=== PATIENT | male | born 1970 | race Caucasian/White ===

== ENCOUNTER 2022-11-14 13:22 | Emergency (ER) | payer OTHER, SELFPAY ==
[2022-11-14 13:26] VITALS: BP 133/92; PULSE 88; RESP 15; TEMP 36.8; O2SAT 100
== END 2022-11-14 13:37 | disposition left against medical advice (07) ==
LOC: ANHED 13:35
DX: R55 Syncope and collapse (principal)
CPT/HCPCS: 99199

== ENCOUNTER 2023-09-20 15:58 | Emergency (ER) | payer SELFPAY ==
--- NOTE | ~2023-09-20 | XR_ITS ---
XR chest 2V Ordering provider: Maria Luisa Wilson History: 53 years Male with . chest pain . Comparison: None. FINDINGS: MEDIASTINUM: The cardiac silhouette is not enlarged. LUNGS: No infiltrates, effusions or pneumothorax. OTHER: No free air under the diaphragm. IMPRESSION: No acute cardiopulmonary pathology. Reviewed, dictated and finalized at location A.
--- NOTE | 2023-09-20 16:00 | ECG_ITS ---
Test Date: 2023-09-20 16:04:37 Measurements Intervals [place] Rate: 94 P: 49 WI: 143 QRS: 35 QRSD: 107 T: 51 QT: 344 QTc: 431 Interpretive Statements SINUS RHYTHM DELAYED PRECORDIAL R/S TRANSITION BORDERLINE ECG No previous ECG available for comparison Electronically Signed On 09-20-2023 16:13:03 CDT by Jamarcus Martinez D.O.
[2023-09-20 16:07] VITALS: BP 123/89; PULSE 94; RESP 17; TEMP 36.6; O2SAT 97
[2023-09-20 16:15] LABS: Basophils Absolute Auto 0.1 K/mm3 (0.0-0.1); Basophils Percent Auto 0.6 % (0.2-1.2); Eosinophils Absolute Auto 0.2 K/mm3 (0-0.3); Eosinophils Percent Auto 2.6 % (0-4.4); Hematocrit 50.3 % (42.0-52.0); Hemoglobin 17.4 g/dL (14.0-18.0); Immature Granulocyte Absolute 0.03 K/mm3 (0.00-0.031); Immature Granulocyte Percent A 0.4 % (0-0.5); Lymphocytes Absolute Auto 1.71 K/mm3 (0.9-3.2); Lymphocytes Percent Auto 21.3 % (18.3-44.2); Mean Corpuscular HGB Conc 34.6 g/dl (32-36); Mean Corpuscular Hemoglobin 30.3 pg (26-34); Mean Corpuscular Volume 87.6 fl (80-100); Mean Platelet Volume 9.3 fl (7.4-10.4); Monocytes Percent Auto 12.7 % (2.6-8.5); Neutrophils Percent Auto 62.4 % (45.5-73.1); Platelet Count Result 252 k/mm3 (150-375); Red Blood Count 5.74 M/mm3 (4.6-6.20); Red Cell Distribution Width 13.5 % (11.5-14.5)
[2023-09-20 16:25] LABS: Alanine Aminotransferase 65 U/L (6-50); Albumin Level 4.7 g/dL (3.5-5.1); Alkaline Phosphatase 86 U/L (38-126); Anion Gap 13 mmol/L (4-12); Aspartate Amino Transferase 40 U/L (17-59); Bilirubin,Total 0.8 mg/dL (0.2-1.3); Blood Urea Nitrogen 14 mg/dL (9-20); Calcium 9.6 mg/dL (8.4-10.2); Carbon Dioxide 25 mmol/L (22-30); Chloride 102 mmol/L (98-107); Estimated CRCL calculation 77 ml/min; Estimated Glomerular Filt Rate > 60; Glucose 108 mg/dL (65-110); Lipase 54 U/L (23-300); Potassium 3.8 mmol/L (3.4-5.0); Sodium 140 mmol/L (137-145)
[2023-09-20 16:26] LABS: INR 1.1; Partial Thromboplastin Time 28.1 Seconds (22.3-36.8); Prothrombin Time 14.2 Seconds (11.1-14.7)
[2023-09-20 16:37] LABS: Troponin I < 0.012 ng/mL (0.000-0.034)
--- NOTE | 2023-09-20 18:38 | PC.NURSE ---
Called for. No response.
--- NOTE | 2023-09-20 18:56 | PC.NURSE ---
Called for. Not present.
== END 2023-09-20 19:01 | disposition left against medical advice (07) ==
LOC: ANHED 19:00
PROVIDERS: Emergency Provider Student in an Organized Health Care Education/Training Program
DX: R07.9 Chest pain, unspecified (principal)
CPT/HCPCS: 36415; 71046; 80053; 83690; 84484; 85025; 85610; 85730; 93005; 99199